=== PATIENT | female | born 1975 | race Caucasian/White ===

== ENCOUNTER 2017-11-16 07:44 | Emergency (ER) | payer MEDICAID ==
[2017-11-16 08:14] LABS: URINE BLOOD (Dip) POC Negative (NEGATIVE); URINE GLUCOSE (Dip) POC Negative (NEGATIVE); URINE KETONES (Dip) POC Negative (NEGATIVE); URINE LEUKOCYTE EST (Dip) POC Trace (NEGATIVE); URINE NITRITE (Dip) POC Negative (NEGATIVE); URINE TOTAL PROTEIN POC Negative (NEGATIVE)
[2017-11-16 08:14] LABS: URINE PH (Dip) POC 5.5 (5.0-8.5)
[2017-11-16] MEDS: KETOROLAC 60 MG INJ IM (08:21)
== END 2017-11-16 08:38 | disposition home or self-care (01) ==
LOC: FTE 07:44
DX: N39.0 Urinary tract infection, site not specified (principal); I10 Essential (primary) hypertension
CPT/HCPCS: 81003; 81025; 96372; 99284-25

== ENCOUNTER 2018-02-28 09:29 | Emergency (ER) | payer MEDICAID ==
[2018-02-28] MEDS: LORAZEPAM 1 MG TAB PO (10:07)
== END 2018-02-28 11:24 | disposition home or self-care (01) ==
LOC: FTE 09:29
DX: F41.9 Anxiety disorder, unspecified (principal); I10 Essential (primary) hypertension
CPT/HCPCS: 81025; 93005; 99283-25